=== PATIENT | female | born 1955 | race Caucasian/White ===

== ENCOUNTER 2019-02-15 09:17 | Inpatient (IN) | payer SELFPAY ==
--- NOTE | 2019-02-15 09:28 | ED PDOC ---
Arrival/HPI - General Chief Complaint: Chest Pain Historian: Patient - Critical Care Critical Care Minutes: 30 minutes - History of Present Illness Narrative History of Present Illness (Text): 02/15/19 09:20 63 year old Hungarian-Speaking female, whose past medical history includes hypertension, presents to the emergency department complaining of chest pain and shortness of breath that began this morning approximately 1-2 hours ago. As per son, patient lives in [facility] and is just in [facility]. Patient is a smoker, but is not a drinker and denies any drug use. Patient denies any fever, chills, nausea, vomiting, diarrhea, back pain, neck pain, headache, dizziness, or any other complaints. Time/Duration: Other (1-2 hours ago) Symptom Onset: Sudden Symptom Course: Unchanged Activities at Onset: Light Context: Home Associated Symptoms (Text): 02/15/19 09:46 Patient's son translates. Past Medical History - Provider Review Nursing Documentation Reviewed: Yes - Cardiac Hx Hypertension: Yes - Psychiatric Hx Substance Use: No Family/Social History - Physician Review Nursing Documentation Reviewed: Yes Family/Social History: No Known Family HX Smoking Status: Heavy Smoker > 10 Cigarettes Daily Hx Alcohol Use: Yes Frequency of alcohol use: Socially Hx Substance Use: No Allergies/Home Meds Allergies/Adverse Reactions: Allergies No Known Allergies Allergy (Verified 02/15/19 09:23) Home Medications: Home Meds Medication Instructions Recorded Confirmed amLODIPine [Norvasc] 10 mg PO DAILY 02/15/19 02/15/19 Review of Systems - Physician Review All systems were reviewed & negative as marked: Yes - Review of Systems Constitutional: absent: Fevers, Other (chills) Respiratory: SOB Cardiovascular: Chest Pain Gastrointestinal: absent: Diarrhea, Nausea, Vomiting Musculoskeletal: absent: Back Pain, Neck Pain Neurological: absent: Headache, Dizziness Physical Exam Vital Signs Reviewed: Yes Temperature: Afebrile Blood Pressure: Hypotensive Pulse: Bradycardic Respiratory Rate: Normal Appearance: Positive for: Well-Appearing, Non-Toxic, Uncomfortable Pain Distress: None Mental Status: Positive for: other (Awake and alert) - Systems Exam Head: Present: Atraumatic, Normocephalic Pupils: Present: PERRL Extroacular Muscles: Present: EOMI Conjunctiva: Present: Normal Mouth: Present: Moist Mucous Membranes Neck: Present: Normal Range of Motion Respiratory/Chest: Present: Clear to Auscultation, Good Air Exchange, Decreased Breath Sounds. No: Respiratory Distress, Accessory Muscle Use Cardiovascular: Present: Regular Rate and Rhythm, Normal S1, S2, Bradycardic. No: Murmurs Abdomen: No: Tenderness, Distention, Peritoneal Signs Back: Present: Normal Inspection Upper Extremity: Present: Normal Inspection. No: Cyanosis, Edema Lower Extremity: Present: Normal Inspection. No: Edema Neurological: Present: GCS=15, CN II-XII Intact, Speech Normal, Motor Func Grossly Intact Skin: Present: Warm, Dry, Normal Color. No: Rashes Psychiatric: Present: Alert Medical Decision Making ED Course and Treatment: 02/15/19 09:25 Impression: 63 year old female presents complaining of chest pain and shortness of breath that began this morning approximately 1-2 hours ago. Plan: -- EKG -- Labs -- Chest X-ray -- Aspirin, Brilinta, Heparin, Lipitor -- Urinalysis -- Reassess and disposition Progress Notes: 02/15/19 09:21 EKG shows at BPM with . Interpreted by me. 02/15/19 09:22 Code Heart Called 02/15/19 09:[address] Rasmussen who is aware and agrees with the plan. Patient will be sent to record label internship. 02/15/19 09:46 EKG shows sinus bradycardia rate approximately [address] elevations inferiorly with reciprocal changes. 02/15/19 09:48 Dr Pena hospitalist accepts to his service. - EKG Interpretation Interpreted by ED Physician: Yes Type: 12 lead EKG - Scribe Statement The provider has reviewed the documentation as recorded by the Kareenibe Piedad Smith Provider Scribe Attestation: All medical record entries made by the Scribe were at my direction and personally dictated by me. I have reviewed the chart and agree that the record accurately reflects my personal performance of the history, physical exam, medical decision making, and the department course for this patient. I have also personally directed, reviewed, and agree with the discharge instructions and disposition. Disposition/Present on Arrival - Present on Arrival Any Indicators Present on Arrival: No History of DVT/PE: No History of Uncontrolled Diabetes: No Urinary Catheter: No History of Decub. Ulcer: No History Surgical Site Infection Following: None - Disposition Have Diagnosis and Disposition been Completed?: Yes Diagnosis: Myocardial infarction Disposition: HOSPITALIZED Disposition Time: 09:47 Patient Plan: Admission, ICU Patient Problems: Current Active Problems Problem Status Onset Myocardial infarction Acute Condition: CRITICAL Forms: [facility] (Belarusian)
[2019-02-15] MEDS ORDERED: Phenylephrine 10 mg/ml Inj ONE (09:44)
[2019-02-15] MEDS ORDERED: Lidocaine PF 2% (5 ml) Inj (For Cardiac Arrhy) ONE (09:44)
[2019-02-15] MEDS ORDERED: Iohexol 350mgl/ml 50 ML ONE (09:45)
[2019-02-15] MEDS ORDERED: Nitroglycerin 50mg in D5W 0 MG/0 ML BOTTLE IV ONE (09:45)
[2019-02-15] MEDS ORDERED: Iodixanol 320 MG/ML 100 ML BOTTLE IV ONE (09:45)
[2019-02-15] MEDS ORDERED: Iodixanol 320 MG/ML 200 ML BOTTLE IV ONE (09:45)
[2019-02-15] MEDS ORDERED: Midazolam 2 MG/2 ML VIAL ONE ×2 (09:45→10:10)
--- NOTE | 2019-02-15 09:46 | CP.PCM.HP ---
<Germán Golden - Last Filed: 02/15/19 10:51> History of Present Illness - History of Present Illness History of Present Illness: Germán Golden DO, PGY-2: HPI for Dr. Leon 63 year old female with a past medical history of hypertension and smoker for 30 years who presented to [facility] for chest pain, dyspnea, and diaphoresis that started at 07:00 AM this morning. She reports vomiting twice also in the morning and taking her Amlodipine 10 mg without relief of her chest pain. She lives in [place]. She is Frisian speaking and her son acts as the looping inspector. The pain is severe, pressure-like 10/10, and unremitting. In the ED she was found to have ST elevations in leads II, III, and aVF with reciprocal ST depressions. She was given 5000 units of heparin, 325 of aspirin, 180 of Brillinta, and Atorvastatin 20 mg -all stat. inbound call center representative management planner was called and the patient was transferred emergently to mill labor supervisor for PCI. Otherwise, a complete 12 point ROS is negative except as mentioned above. PMH: Hypertension and active smoker PSH: Denies Allergies: Frisian drug called RODRICK Social: , active smoker with 30 pack year history, denies alcohol or illicit drug use; lives in [place] Present on Admission - Present on Admission Any Indicators Present on Admission: No Review of Systems - Review of Systems All systems: reviewed and no additional remarkable complaints except (as per HPI) Past Patient History - Past Social History Smoking Status: Never Smoked - CARDIAC Hx Hypertension: Yes - PSYCHIATRIC Hx Substance Use: No - SURGICAL HISTORY Hx Surgeries: No Meds Allergies/Adverse Reactions: Allergies Allergy/AdvReac Type Severity Reaction Status Date / Time No Known Allergies Allergy Verified 02/15/19 11:52 Physical Exam - Constitutional Appears: In Acute Distress - Head Exam Head Exam: ATRAUMATIC, NORMOCEPHALIC - Eye Exam Eye Exam: EOMI, Normal appearance - ENT Exam ENT Exam: Mucous Membranes Moist - Neck Exam Neck exam: Positive for: Normal Inspection - Respiratory Exam Respiratory Exam: Clear to Auscultation Bilateral, NORMAL BREATHING PATTERN. a bsent: Accessory Muscle Use - Cardiovascular Exam Cardiovascular Exam: Bradycardia, +S1, +S2 - GI/Abdominal Exam GI & Abdominal Exam: Normal Bowel Sounds, Soft. absent: Guarding, Rebound - Extremities Exam Additional comments: arms felt cold - Back Exam Back exam: NORMAL INSPECTION - Neurological Exam Neurological exam: Alert, CN II-XII Intact, Oriented x3 - Psychiatric Exam Psychiatric exam: Normal Affect, Normal Mood - Skin Skin Exam: Dry, Intact, Normal Color, Warm Results - Vital Signs Recent Vital Signs: Last Vital Signs Temp 97.4 F L 02/15/19 09:19 Pulse 55 L 02/15/19 09:38 Resp 18 02/15/19 09:38 BP 133/69 02/15/19 09:38 Pulse Ox 100 02/15/19 09:38 - Labs Result Diagrams: 02/15/19 09:30 02/15/19 09:30 Assessment & Plan - Assessment and Plan (Free Text) Assessment: 63 year old femal with a past medical history of hypertension and active smoking who presented with substernal chest pain, dyspnea, and diaphoresis and was found to have an STEMI. A code heart was called and patient was given 325 of aspirin, 180 of Brillinta, and 5000 units of IVP Heparin. She was taken for cardiac cath and PTCA with CITLALLI placement occurred in the occluded RCA. The patient was also started on an integrillin drip per the management planner during the cath procedure. She was transferred to the ICU for closer monitoring. Plan: 1) STEMI s/p PTCA with CITLALLI placement in RCA - Patient given loading dose of aspirin and Brillinta, Atorvastatin 20 mg, and one time bolus of heparin 5,000 units - Successuful PTCA to RCA with CITLALLI placement performed by Dr. Rasmussen, client solutions specialist - Integrillin drip for 6 hours per cardiology - NS 100 mls/hr to continue given patient was relatively hypotensive, likely secondary to RV infarction - Cardiology consulted, Dr. Flores - Post PCI care in ICU - ICU for closer monitoring - Holding B-mark and ACEI at this time given the patient is somewhat on hypotensive side - Continue Aspirin 81 mg daily - Continue Brillinta 90 mg BID starting tomorrow, unless otherwise indicated by management planner 2) Active smoker - Smoking cessation counselling - Patient informed she cannot smoke anymore 3) Hypertension - Holding Amlodipine (home med) given hypotensive 4) DVT/GI prophylaxis - SCD - Pepcid 20 mg HS Case was reviewed and discussed with attending physician, Dr. Halina Leon <Halina Leon R - Last Filed: 02/15/19 16:10> Results - Vital Signs Recent Vital Signs: Last Vital Signs Temp 97.9 F 02/15/19 16:00 Pulse 64 02/15/19 16:00 Resp 24 02/15/19 16:00 BP 114/57 L 02/15/19 16:00 Pulse Ox 95 02/15/19 16:00 - Labs Result Diagrams: 02/15/19 09:30 02/15/19 09:30 Labs: Laboratory Results - last 24 hr 02/15/19 02/15/19 02/15/19 09:30 09:30 09:30 WBC 15.8 H RBC 4.93 Hgb 13.8 Hct 43.3 MCV 87.8 MCH 28.0 MCHC 31.9 RDW 14.5 Plt Count 347 MPV 9.5 Neut % (Auto) 76.4 H Lymph % (Auto) 14.5 L Jun[place] % (Auto) 7.2 H Eos % (Auto) 1.6 Baso % (Auto) 0.3 Lymph # (Auto) 2.3 Juncos # (Auto) 1.1 H Eos # (Auto) 0.3 Baso # (Auto) 0.04 Absolute Neuts (auto) 12.08 H PT 10.6 INR 0.94 APTT 26.7 L Sodium 140 Potassium 3.6 Chloride 105 Carbon Dioxide 27 Anion Gap 11 BUN 14 Creatinine 0.7 Est GFR ( Amer) > 60 Est GFR (Non-Af Amer) > 60 Random Glucose 169 H Hemoglobin A1c Calcium 9.1 Magnesium 1.9 Total Bilirubin 0.4 AST 21 ALT 16 Alkaline Phosphatase 95 Lactate Dehydrogenase 437 Total Creatine Kinase 53 Troponin I 0.02 NT-Pro-B Natriuret Pep 88.3 Total Protein 7.0 Albumin 4.1 Globulin 2.9 Albumin/Globulin Ratio 1.4 Triglycerides Cholesterol LDL Cholesterol Direct HDL Cholesterol Blood Type Blood Type Confirm Antibody Screen BBK History Checked 02/15/19 02/15/19 02/15/19 09:30 09:30 11:00 WBC RBC Hgb Hct MCV MCH MCHC RDW Plt Count MPV Neut % (Auto) Lymph % (Auto) Juncos % (Auto) Eos % (Auto) Baso % (Auto) Lymph # (Auto) Juncos # (Auto) Eos # (Auto) Baso # (Auto) Absolute Neuts (auto) PT INR APTT Sodium Potassium Chloride Carbon Dioxide Anion Gap BUN Creatinine Est GFR ( Amer) Est GFR (Non-Af Amer) Random Glucose Hemoglobin A1c 5.8 Calcium Magnesium Total Bilirubin AST ALT Alkaline Phosphatase Lactate Dehydrogenase Total Creatine Kinase Troponin I NT-Pro-B Natriuret Pep Total Protein Albumin Globulin Albumin/Globulin Ratio Triglycerides 86 Cholesterol 256 H LDL Cholesterol Direct 175 H HDL Cholesterol 41 Blood Type A NEGATIVE Blood Type Confirm Antibody Screen Negative BBK History Checked No verified bt 02/15/19 11:45 WBC RBC Hgb Hct MCV MCH MCHC RDW Plt Count MPV Neut % (Auto) Lymph % (Auto) Jun[place] % (Auto) Eos % (Auto) Baso % (Auto) Lymph # (Auto) Juncos # (Auto) Eos # (Auto) Baso # (Auto) Absolute Neuts (auto) PT INR APTT Sodium Potassium Chloride Carbon Dioxide Anion Gap BUN Creatinine Est GFR ( Amer) Est GFR (Non-Af Amer) Random Glucose Hemoglobin A1c Calcium Magnesium Total Bilirubin AST ALT Alkaline Phosphatase Lactate Dehydrogenase Total Creatine Kinase Troponin I NT-Pro-B Natriuret Pep Total Protein Albumin Globulin Albumin/Globulin Ratio Triglycerides Cholesterol LDL Cholesterol Direct HDL Cholesterol Blood Type Blood Type Confirm A NEGATIVE Antibody Screen BBK History Checked Attending/Attestation - Attestation I have personally seen and examined this patient.: Yes I have fully participated in the care of the patient.: Yes I have reviewed all pertinent clinical information: Yes Notes (Text): Patient seen and examined by me with resident at approximately 9:40AM on 02/15/19 in the emergency room. Case including HPI, physical exam, and assessment and plan discussed with resident. Agree with above with following additions/corrections. Patient is a 63-year-old female past medical history significant for hypertension and smoking that presented to the emergency room with chest pain. History taken from patient's son with patient's permission secondary to patient's condition. Per patient's son, mother lives in [place]. The ex- lives in [place]. Patient comes to [place] on certain weekends to visit and was visiting this weekend. Around 7 AM this morning, patient started to have chest pressure and "burning." This was associated with nausea and nonbilious and nonbloody vomiting 2-3 times. She also had associated diaphoresis. Patient lost her balance. Patient also had numbness in her hands and fingers. Patient laid down. Patient's ex- called patient's son who came to the home and called the ambulance. Per patient's son patient was complaining of pain and difficulty with swallowing yesterday. Per patient's son, patient is suppose to be seeing her physician this upcoming Sunday. Patient is a current smoker. Patient takes Norvasc from [facility] for her blood pressure. Patient did not complain of abdominal pain or dysuria. No fevers or chills. Family History: Unable to obtain from patient secondary to patient condition Medications at home: Norvasc from [facility]. Physical exam: General: Awake and alert lying in bed in no acute distress HEENT: Normocephalic, atraumatic. Extraocular muscles intact. Pupils equal and reactive, no scleral icterus. Oropharynx is pink and moist. No pharyngeal erythema or exudate appreciated. Neck is supple. Cardiovascular: Bradycardic S1 and S2. No murmurs, rubs, or gallops appreciated Pulmonary: Normal respiratory effort. No rhonchi, rales, or wheezing appreciated. Gastrointestinal: Soft, nondistended. Nontender. Positive bowel sounds all 4 quadrants. No guarding. Musculoskeletal: Moves all extremities. No calf tenderness. No edema appreciated. Central nervous system: AAO X 3. No focal deficits appreciated. Dermatologic: Skin warm and dry. Assessment and plan: Patient is a 63-year-old female past medical history significant for hypertension and smoking that presented to the emergency room with chest pain. 1. Acute STEMI. Patient s/p PTCA. Drug eluting stent placed in RCA. Cardiology recommendations appreciated. Patient on integrillin drip, brillinta, and ASA. Also on Lipitor. Follow up 2D echo. Monitor in the ICU. 2. Hypertension. Norvasc held for now. Will follow up with management planner for discharge recommendations. 3. Hyperlipidemia. Started on Lipitor. 4. Tobacco abuse. Counseled at length on cessation. Case was discussed in detail with the patient and patient's son at bedside regarding current diagnosis, study results, and treatment plan. All questions answered.
[2019-02-15 09:58] LABS: BASO # 0.04 K/mm3 (0.0-2.0); BASO % 0.3 % (0.0-3.0); EOS # 0.3 (0.0-0.7); EOS % 1.6 % (1.5-5.0); HEMOGLOBIN 13.8 g/dL (12.0-16.0); LYMPH # 2.3 (1.2-3.4); LYMPH % 14.5 % (22.0-35.0); MEAN CELL VOLUME 87.8 fl (80.0-105.0); MEAN CORPUSCULAR HGB CONC 31.9 g/dl (31.0-37.0); MEAN PLATELET VOLUME 9.5 fl (7.0-11.0); MONO # 1.1 (0.1-0.6); MONO % 7.2 % (1.0-6.0); RBC 4.93 10^6/uL (3.5-6.1); RED CELL DISTRIBUTION WIDTH 14.5 % (11.5-14.5); WHITE BLOOD COUNT 15.8 10^3/uL (4.5-11.0)
[2019-02-15 10:01] LABS: INR 0.94; PARTIAL THROMBOPLASTIN TIME 26.7 Seconds (26.9-38.3); PROTHROMBIN TIME 10.6 SECONDS (9.4-12.5)
[2019-02-15 10:10] LABS: ALB/GLOB RATIO 1.4 (1.1-1.8); ALBUMIN 4.1 g/dL (3.0-4.8); ALT/SGPT 16 U/L (7-56); AST/SGOT 21 U/L (14-36); BLOOD UREA NITROGEN 14 mg/dL (7-21); CALCIUM 9.1 mg/dL (8.4-10.5); GFR NON-AFRICAN AMERICAN > 60
[2019-02-15] MEDS ORDERED: Eptifibatide 20 mg/10mL Inj IVP ONE (10:10)
[2019-02-15 10:21] LABS: B-TYPE NATRIURETIC PEPTIDE 88.3 pg/mL (0-450); TROPONIN I 0.02 ng/mL
[2019-02-15] MEDS ORDERED: Eptifibatide 0.75 mg/ml 75 MG/100 ML BAG IV ONE (10:28)
[2019-02-15] MEDS ORDERED: Eptifibatide 0.75 mg/ml 75 MG/100 ML BAG IV SCH ×3 (10:45→11:45)
[2019-02-15] MEDS ORDERED: Sodium Chloride 0.9% 1,000 ML IV SCH ×2 (10:45)
--- NOTE | 2019-02-15 11:12 | RAD ---
Date of service: 02/15/2019 HISTORY: Chest pain COMPARISON: No prior. FINDINGS: LUNGS: The lungs are well inflated and clear. PLEURA: No pleural effusions or pneumothorax. CARDIOVASCULAR: The heart is normal in size. There are aortic atherosclerotic calcifications present. OSSEOUS STRUCTURES: Within normal limits for the patient's age. VISUALIZED UPPER ABDOMEN: Normal. OTHER FINDINGS: None. IMPRESSION: No active pulmonary disease.
[2019-02-15 11:54] LABS: HDL CHOLESTEROL 41 mg/dL (29-60)
[2019-02-15 12:04] LABS: LDL CHOLESTEROL 175 mg/dL (0-129)
--- NOTE | 2019-02-15 13:37 | CP.PCM.CON ---
<Teodoro Diallo - Last Filed: 02/15/19 15:09> History of Present Illness - History of Present Illness History of Present Illness: PGY-2 ICU consult note for Dr Ramírez Mrs Gtz is a 63 year old russian speaking female with a PMHx of active tobacco use for past 30 years, HTN, HLD who presented to our ED for chest pain, dyspnea, and diaphoresis that started at approx 07:00 AM this morning. She reports vomiting twice also in the morning and taking her Amlodipine 10 mg without relief of her chest pain. The pain is severe, pressure-like 10/10, and unremitting. She lives in [place] and is visiting her here in [place]. Her PMD is in [place]. In the ED she was found to have ST elevations in leads II, III, and aVF with reciprocal ST depressions. She was given 5000 units of heparin, 325 of aspirin, 180 of Brillinta, and Atorvastatin 20 mg -all stat. fitness and wellness instructor sales service promoter, Dr Rasmussen was called and the patient was transferred emergently to laboratory supervisor for PCI where a stent was placed in the RCA. She is now in the ICU for post PCI care, she denies discomfort, pain, abd pain, fevers, cp, n/v/d. Son was at bedside who provided translation and additional history. PMHx: active tobacco use for past 30 years, HTN, HLD PSHx: denies Allergies: NKA Home Meds: son/patient unable to recall names of home meds FamHx: no hx of heart dz in family SocialHx: 30 pack year smoking hx, no alcohol, no illicit drugs, lives in [place], visiting in [place] Review of Systems - Review of Systems All systems: reviewed and no additional remarkable complaints except (as stated in HPI) Past Patient History - Past Social History Smoking Status: Never Smoked - CARDIAC Hx Hypertension: Yes - PSYCHIATRIC Hx Substance Use: No - SURGICAL HISTORY Hx Surgeries: No Meds Allergies/Adverse Reactions: Allergies Allergy/AdvReac Type Severity Reaction Status Date / Time No Known Allergies Allergy Verified 02/15/19 11:52 - Medications Medications: Current Medications Aspirin (Ecotrin) 81 mg PO DAILY [facility] Famotidine (Pepcid) 20 mg PO HS [facility] Eptifibatide (Integrilin) 75 mg in 100 mls @ 9.471 mls/hr IV .[id number] [facility]; Protocol Last Admin: 02/15/19 10:30 Dose: 9.471 mls/hr Ticagrelor (Brilinta) 90 mg PO BID [facility] Physical Exam - Constitutional Appears: Well, Non-toxic, No Acute Distress - Head Exam Head Exam: ATRAUMATIC, NORMAL INSPECTION - Eye Exam Eye Exam: EOMI, Normal appearance, PERRL. absent: Scleral icterus - ENT Exam ENT Exam: Mucous Membranes Moist - Neck Exam Neck exam: Positive for: Full Rom, Normal Inspection - Respiratory Exam Respiratory Exam: Clear to Auscultation Bilateral, NORMAL BREATHING PATTERN. absent: Accessory Muscle Use, Rales, Rhonchi, Wheezes - Cardiovascular Exam Cardiovascular Exam: REGULAR RHYTHM, +S1, +S2. absent: Tachycardia, Systolic Murmur - GI/Abdominal Exam GI & Abdominal Exam: Normal Bowel Sounds, Soft. absent: Distended, Tenderness - Extremities Exam Extremities exam: Positive for: normal capillary refill, normal inspection, pedal pulses present. Negative for: pedal edema Additional comments: right groin catheter insertion site is c/d/i - Neurological Exam Neurological exam: Alert, Oriented x3 - Skin Skin Exam: Dry, Intact, Normal Color, Warm Results - Vital Signs Recent Vital Signs: Last Vital Signs Temp 97.4 F L 02/15/19 12:00 Pulse 76 02/15/19 12:30 Resp 35 H 02/15/19 12:30 BP 131/80 02/15/19 12:30 Pulse Ox 100 02/15/19 12:30 - Labs Result Diagrams: 02/15/19 09:30 02/15/19 09:30 Labs: Laboratory Results - last 24 hr 02/15/19 02/15/19 02/15/19 09:30 09:30 09:30 WBC 15.8 H RBC 4.93 Hgb 13.8 Hct 43.3 MCV 87.8 MCH 28.0 MCHC 31.9 RDW 14.5 Plt Count 347 MPV 9.5 Neut % (Auto) 76.4 H Lymph % (Auto) 14.5 L [place] % (Auto) 7.2 H Eos % (Auto) 1.6 Baso % (Auto) 0.3 Lymph # (Auto) 2.3 [place] # (Auto) 1.1 H Eos # (Auto) 0.3 Baso # (Auto) 0.04 Absolute Neuts (auto) 12.08 H PT 10.6 INR 0.94 APTT 26.7 L Sodium 140 Potassium 3.6 Chloride 105 Carbon Dioxide 27 Anion Gap 11 BUN 14 Creatinine 0.7 Est GFR ( Amer) > 60 Est GFR (Non-Af Amer) > 60 Random Glucose 169 H Calcium 9.1 Magnesium 1.9 Total Bilirubin 0.4 AST 21 ALT 16 Alkaline Phosphatase 95 Lactate Dehydrogenase 437 Total Creatine Kinase 53 Troponin I 0.02 NT-Pro-B Natriuret Pep 88.3 Total Protein 7.0 Albumin 4.1 Globulin 2.9 Albumin/Globulin Ratio 1.4 Triglycerides Cholesterol LDL Cholesterol Direct HDL Cholesterol Blood Type Blood Type Confirm Antibody Screen BBK History Checked 02/15/19 02/15/19 02/15/19 09:30 11:00 11:45 WBC RBC Hgb Hct MCV MCH MCHC RDW Plt Count MPV Neut % (Auto) Lymph % (Auto) [place] % (Auto) Eos % (Auto) Baso % (Auto) Lymph # (Auto) [place] # (Auto) Eos # (Auto) Baso # (Auto) Absolute Neuts (auto) PT INR APTT Sodium Potassium Chloride Carbon Dioxide Anion Gap BUN Creatinine Est GFR ( Amer) Est GFR (Non-Af Amer) Random Glucose Calcium Magnesium Total Bilirubin AST ALT Alkaline Phosphatase Lactate Dehydrogenase Total Creatine Kinase Troponin I NT-Pro-B Natriuret Pep Total Protein Albumin Globulin Albumin/Globulin Ratio Triglycerides 86 Cholesterol 256 H LDL Cholesterol Direct 175 H HDL Cholesterol 41 Blood Type A NEGATIVE Blood Type Confirm A NEGATIVE Antibody Screen Negative BBK History Checked No verified bt Assessment & Plan - Assessment and Plan (Free Text) Plan: Mrs Gtz is a 63 year old russian speaking female with a PMHx of active tobacco use for past 30 years, HTN, HLD who presented with chest pain, was found to have ST elevations in II, III, aVF with recipricol changes, was taken to the laboratory supervisor for PCI and insertion of CITLALLI in RCA. Cardiovascular #Inferior Wall CT - currently hemodynamically stable - s/p successful PCI to RCA w/ CITLALLI placement performed by sales service promoter Dr Elicia barclay - started on dual anti-platelet therapy w/ aspirin 81mg po qd and ticagrelor 90mg po bid - eptifibatide drip to be continued until 23:[address] Rasmussen - Holding B-mark and ACEI at this time given the patient was hypotensive earlier, she will also need high-intensity statin - Cardiology consulted, Dr. Flores #HLD - lipid panel showed LDL of 175 and cholesterol of 256 - she would benefit from a high-intensity statin ID - no active issues, leukocytosis likely a stress response to CT Pulmonary - no active issues, cxr showed no active lung dz, saturating well on 2L NC PPx - SCDs, pepcid 20mg po hs Case was reviewed and discussed with attending physician, Dr Ramírez <Jaycob Ramírez - Last Filed: 02/16/19 11:39> Meds - Medications Medications: Current Medications Aspirin (Ecotrin) 81 mg PO DAILY [facility] Last Admin: 02/16/19 10:38 Dose: 81 mg Atorvastatin Calcium (Lipitor) 40 mg PO DIN [facility] Last Admin: 02/15/19 17:10 Dose: 40 mg Famotidine (Pepcid) 20 mg PO HS [facility] Last Admin: 02/15/19 22:20 Dose: 20 mg Lisinopril (Zestril) 5 mg PO DAILY [facility] Last Admin: 02/16/19 09:36 Dose: 5 mg Metoprolol Succinate (Toprol Xl) 25 mg PO BRK [facility] Last Admin: 02/16/19 07:55 Dose: Not Given Ticagrelor (Brilinta) 90 mg PO BID [facility] Last Admin: 02/16/19 09:36 Dose: 90 mg Results - Vital Signs Recent Vital Signs: Last Vital Signs Temp 97.9 F 02/15/19 16:00 Pulse 79 02/16/19 09:40 Resp 40 H 02/16/19 09:40 BP 112/56 L 02/16/19 09:36 Pulse Ox 96 02/16/19 09:40 - Labs Result Diagrams: 02/16/19 05:00 02/16/19 05:00 Labs: Laboratory Results - last 24 hr 02/15/19 02/15/19 02/15/19 09:30 09:30 11:00 WBC RBC Hgb Hct MCV MCH MCHC RDW Plt Count MPV Neut % (Auto) Lymph % (Auto) [place] % (Auto) Eos % (Auto) Baso % (Auto) Lymph # (Auto) [place] # (Auto) Eos # (Auto) Baso # (Auto) Absolute Neuts (auto) Sodium Potassium Chloride Carbon Dioxide Anion Gap BUN Creatinine Est GFR ( Amer) Est GFR (Non-Af Amer) Random Glucose Hemoglobin A1c 5.8 Calcium Phosphorus Magnesium Total Bilirubin AST ALT Alkaline Phosphatase Troponin I Total Protein Albumin Globulin Albumin/Globulin Ratio Triglycerides 86 Cholesterol 256 H LDL Cholesterol Direct 175 H HDL Cholesterol 41 Blood Type A NEGATIVE Blood Type Confirm Antibody Screen Negative 02/15/19 02/16/19 02/16/19 11:45 05:00 05:00 WBC 9.7 D RBC 4.15 Hgb 11.7 L D Hct 36.4 MCV 87.7 MCH 28.2 MCHC 32.1 RDW 14.8 H Plt Count 281 MPV 9.4 Neut % (Auto) 73.6 H Lymph % (Auto) 15.3 L [place] % (Auto) 10.5 H Eos % (Auto) 0.5 L Baso % (Auto) 0.1 Lymph # (Auto) 1.5 [place] # (Auto) 1.0 H Eos # (Auto) 0.1 Baso # (Auto) 0.01 Absolute Neuts (auto) 7.14 H Sodium 140 Potassium 3.6 Chloride 110 H Carbon Dioxide 26 Anion Gap 8 L BUN 13 Creatinine 0.6 L Est GFR ( Amer) > 60 Est GFR (Non-Af Amer) > 60 Random Glucose 94 Hemoglobin A1c Calcium 8.6 Phosphorus 2.9 Magnesium 1.8 Total Bilirubin 0.5 AST 125 H D ALT 33 Alkaline Phosphatase 76 Troponin I 27.80 H* D Total Protein 5.7 L Albumin 3.2 Globulin 2.5 Albumin/Globulin Ratio 1.3 Triglycerides Cholesterol LDL Cholesterol Direct HDL Cholesterol Blood Type Blood Type Confirm A NEGATIVE Antibody Screen Attending/Attestation - Attestation I have personally seen and examined this patient.: Yes I have fully participated in the care of the patient.: Yes I have reviewed all pertinent clinical information: Yes Notes (Text): 02/16/19 11:39 63 yo female with STEMI. on integrillin drip. bb, statins, dap. no exapnding hematoma. BP stable
[2019-02-15 15:01] VITALS: BMI 21.7
[2019-02-15] MEDS ORDERED: Pneumococcal 23-Valent Vaccine IM ONE (15:01)
--- NOTE | 2019-02-16 05:35 | CARD ---
APPROVED REPORT Date of service: 02/15/2019 EKG Measurement Heart [id number] <Conclusion> Sinus bradycardia with sinus arrhythmia with 1st degree AV block Possible Left atrial enlargement ST elevation, consider inferior injury or acute infarct ACUTE MD Consider right ventricular involvement in acute inferior infarct Abnormal ECG
[2019-02-16 06:02] LABS: BASO # 0.01 K/mm3 (0.0-2.0); BASO % 0.1 % (0.0-3.0); EOS # 0.1 (0.0-0.7); EOS % 0.5 % (1.5-5.0); HEMOGLOBIN 11.7 g/dL (12.0-16.0); LYMPH # 1.5 (1.2-3.4); LYMPH % 15.3 % (22.0-35.0); MEAN CELL VOLUME 87.7 fl (80.0-105.0); MEAN CORPUSCULAR HEMOGLOBIN 28.2 pg (25.0-35.0); MEAN CORPUSCULAR HGB CONC 32.1 g/dl (31.0-37.0); MEAN PLATELET VOLUME 9.4 fl (7.0-11.0); MONO % 10.5 % (1.0-6.0); RBC 4.15 10^6/uL (3.5-6.1); RED CELL DISTRIBUTION WIDTH 14.8 % (11.5-14.5); WHITE BLOOD COUNT 9.7 10^3/uL (4.5-11.0)
[2019-02-16 06:41] LABS: ALB/GLOB RATIO 1.3 (1.1-1.8); ALBUMIN 3.2 g/dL (3.0-4.8); ALT/SGPT 33 U/L (7-56); AST/SGOT 125 U/L (14-36); BLOOD UREA NITROGEN 13 mg/dL (7-21); CALCIUM 8.6 mg/dL (8.4-10.5); GFR NON-AFRICAN AMERICAN > 60
[2019-02-16] MEDS: Metoprolol Succinate 25 mg XL Tab PO SCH (07:55)
--- NOTE | 2019-02-16 11:42 | CP.PCM.PN ---
<Germán Golden - Last Filed: 02/16/19 11:42> Subjective - Date & Time of Evaluation Date of Evaluation: 02/16/19 Time of Evaluation: 06:40 - Subjective Subjective: Germán Golden DO, PGY-2: Progress Note for Dr. Halina Leon Patient seen and examined at bedside. [place] translation service utilized. Patient denies chest pain, dyspnea, or pain in right groin site. No adverse events noted overnight. Objective - Vital Signs/Intake and Output Vital Signs (last 24 hours): Temp Pulse Resp BP Pulse Ox 97.9 F 79 40 H 112/56 L 96 02/15/19 16:00 02/16/19 09:40 02/16/19 09:40 02/16/19 09:36 02/16/19 09:40 Intake and Output: 02/16/19 02/16/19 06:59 18:59 Intake Total 1220 Output Total 800 Balance 420 - Medications Medications: Current Medications Aspirin (Ecotrin) 81 mg PO DAILY [facility] Last Admin: 02/16/19 10:38 Dose: 81 mg Atorvastatin Calcium (Lipitor) 40 mg PO DIN [facility] Last Admin: 02/15/19 17:10 Dose: 40 mg Famotidine (Pepcid) 20 mg PO HS [facility] Last Admin: 02/15/19 22:20 Dose: 20 mg Lisinopril (Zestril) 5 mg PO DAILY [facility] Last Admin: 02/16/19 09:36 Dose: 5 mg Metoprolol Succinate (Toprol Xl) 25 mg PO BRK [facility] Last Admin: 02/16/19 07:55 Dose: Not Given Ticagrelor (Brilinta) 90 mg PO BID [facility] Last Admin: 02/16/19 09:36 Dose: 90 mg - Labs Labs: 02/16/19 05:00 02/16/19 05:00 PT 10.6 SECONDS (9.4-12.5) 02/15/19 09:30 INR 0.94 02/15/19 09:30 APTT 26.7 Seconds (26.9-38.3) L 02/15/19 09:30 - Constitutional Appears: Well, Non-toxic - Head Exam Head Exam: ATRAUMATIC, NORMOCEPHALIC - Eye Exam Eye Exam: EOMI, Normal appearance - ENT Exam ENT Exam: Mucous Membranes Moist, Normal Oropharynx - Neck Exam Neck Exam: Normal Inspection - Respiratory Exam Respiratory Exam: Clear to Ausculation Bilateral, NORMAL BREATHING PATTERN. absent: Accessory Muscle Use - Cardiovascular Exam Cardiovascular Exam: RRR, +S1, +S2 - GI/Abdominal Exam GI & Abdominal Exam: Soft, Normal Bowel Sounds. absent: Tenderness, Rebound - Extremities Exam Extremities Exam: Normal Inspection. absent: Calf Tenderness - Neurological Exam Neurological Exam: Alert, Awake, CN II-XII Intact, Oriented x3 - Psychiatric Exam Psychiatric exam: Normal Affect, Normal Mood - Skin Skin Exam: Dry, Intact, Normal Color, Warm Assessment and Plan - Assessment and Plan (Free Text) Assessment: 1) STEMI s/p PTCA with CITLALLI placement in RCA - Patient given loading dose of aspirin and Brillinta, Atorvastatin 20 mg, and one time bolus of heparin 5,000 units - Successuful PTCA to RCA with CITLALLI placement performed by Dr. Rasmussen, holder pile driving - Integrillin drip for 6 hours per cardiology - Cardiology consulted, Dr. Flores - Post PCI care in ICU - B-mark and ACEI started per Cardiology - Continue Aspirin 81 mg daily - Continue Atorvastatin 40 mg after Dinner - Continue Brillinta 90 mg BID - Echocardiogram pending 2) Active smoker - Smoking cessation counselling - Patient informed she cannot smoke anymore 3) DVT/GI prophylaxis - SCD - Pepcid 20 mg HS Case was reviewed and discussed with attending physician, Dr. Halina Leon <Halina Leon R - Last Filed: 02/16/19 15:54> Objective - Vital Signs/Intake and Output Vital Signs (last 24 hours): Temp Pulse Resp BP Pulse Ox 97.9 F 57 L 18 117/68 97 02/16/19 12:00 02/16/19 12:00 02/16/19 12:00 02/16/19 12:00 02/16/19 09:45 Intake and Output: 02/16/19 02/16/19 06:59 18:59 Intake Total 1220 Output Total 800 Balance 420 - Medications Medications: Current Medications Aspirin (Ecotrin) 81 mg PO DAILY [facility] Last Admin: 02/16/19 10:38 Dose: 81 mg Atorvastatin Calcium (Lipitor) 40 mg PO DIN [facility] Last Admin: 02/15/19 17:10 Dose: 40 mg Famotidine (Pepcid) 20 mg PO HS [facility] Last Admin: 02/15/19 22:20 Dose: 20 mg Lisinopril (Zestril) 5 mg PO DAILY [facility] Last Admin: 02/16/19 09:36 Dose: 5 mg Metoprolol Succinate (Toprol Xl) 25 mg PO BRK [facility] Last Admin: 02/16/19 07:55 Dose: Not Given Ticagrelor (Brilinta) 90 mg PO BID [facility] Last Admin: 02/16/19 09:36 Dose: 90 mg - Labs Labs: 02/16/19 05:00 02/16/19 05:00 PT 10.6 SECONDS (9.4-12.5) 02/15/19 09:30 INR 0.94 02/15/19 09:30 APTT 26.7 Seconds (26.9-38.3) L 02/15/19 09:30 Attending/Attestation - Attestation I have personally seen and examined this patient.: Yes I have fully participated in the care of the patient.: Yes I have reviewed all pertinent clinical information, including history, physical exam and plan: Yes Notes (Text): Patient seen and examined by me with resident at approximately 9:30AM on 02/16/19 in the emergency room. Case including HPI, physical exam, and assessment and plan discussed with resident. Agree with above with following sukhi tions/corrections. Patient is a 63-year-old female past medical history significant for hypertension and smoking that presented to the emergency room with chest pain. [place] assistant banquet manager Rosalba # [id number] used for translation. Patient states she is feeling better today. No chest pain today. She denies any palpitations. No shortness of breath. Patient denies any pain at her right groin cardiac cath si te. No nausea, vomiting, or abdominal pain. no dysuria. No headaches or dizziness. No fevers or chills. Patient understands that she will need to stop smoking and will need to eat healthy and exercise. Physical exam: General: Awake and alert lying in bed in no acute distress HEENT: Normocephalic, atraumatic. Extraocular muscles intact. Pupils equal and reactive, no scleral icterus. Oropharynx is pink and moist. No pharyngeal erythema or exudate appreciated. Neck is supple. Cardiovascular: Normal rhythm. Normal S1 and S2. No murmurs, rubs, or gallops appreciated Pulmonary: Normal respiratory effort. No rhonchi, rales, or wheezing appreciated. Gastrointestinal: Soft, nondistended. Nontender. Positive bowel sounds all 4 quadrants. No guarding. Musculoskeletal: Moves all extremities. No calf tenderness. No edema appreciated. Central nervous system: AAO X 3. No focal deficits appreciated. Dermatologic: Skin warm and dry. Assessment and plan: Patient is a 63-year-old female past medical history significant for hypertension and smoking that presented to the emergency room with chest pain. 1. Acute STEMI. Patient s/p PTCA 01/16/19. Drug eluting stent placed in RCA. Cardiology recommendations appreciated. S/P integrillin drip. Continue brillinta and ASA. Continue Lipitor. Continue lisinopril and Toprol. Pending 2D echo. Monitor in the ICU. PTeval and treat. 2. Hypertension. Patient will need to stop home Norvasc. Continue lisinopril and Toprol XL. 3. Hyperlipidemia. Continue Lipitor. 4. Tobacco abuse. Counseled at length on cessation. Case was discussed in detail with the patient and patient's son at bedside regarding current diagnosis, study results, and treatment plan. All questions answered.
[2019-02-16 12:52] VITALS: RESP 18
--- NOTE | 2019-02-16 13:22 | CON ---
DATE: 02/16/2019 REQUESTING PHYSICIAN: Dr. Leon. REASON FOR CONSULTATION: Acute myocardial infarction. HISTORY: This is a 63-year-old woman with a history of tobacco abuse and hyperlipidemia, who was admitted to the emergency room yesterday with complaints of chest pain and diaphoresis. Her EKG showed evidence of acute inferior myocardial infarction. Emergency catheterization and PCI of her RCA was performed by Dr. Rasmussen. The patient had a good result and is now lying in bed in the CCU. She has had no recurrent chest pain. She is predominantly [place] speaking. She lives in [place] and was visiting her in [facility]. She had no prior cardiac history. PAST MEDICAL HISTORY: Known for hypertension and hyperlipidemia. CURRENT MEDICATIONS: Include aspirin, Brilinta, Lipitor 40 mg daily, and Pepcid. ALLERGIES: NONE. SOCIAL HISTORY: She is a longstanding smoker for many years. She denies alcohol use. FAMILY HISTORY: Both parents are from age-related illnesses. No family history of premature heart disease. REVIEW OF SYSTEMS: A 12-point review of systems is otherwise unremarkable. She has had no prior chest pain, PND, or orthopnea. PHYSICAL EXAMINATION: GENERAL: She is a middle-aged woman who appears comfortable at rest. VITAL SIGNS: Her blood pressure is 122/62 with a pulse of 76, respirations are 16. She is afebrile. HEENT: No JVD. Chest: Few scattered rhonchi heard. HEART: PMI normal position. No pathological gallops noted. ABDOMEN: Soft and nontender with bowel sounds. EXTREMITIES: No edema. DIAGNOSTIC DATA: Morning blood work is pending. Electrocardiogram from yesterday revealed evidence of inferior ST elevations with reciprocal changes. Chest x-ray revealed normal cardiac silhouette with clear lung hamlin. IMPRESSION: 1. Coronary artery disease, status post acute inferior wall myocardial infarction, successfully treated with percutaneous coronary intervention of right coronary artery. 2. Mild left coronary artery disease. 3. History of tobacco abuse. 4. Hyperlipidemia. 5. Hypertension. RECOMMENDATIONS: Her current medications will be continued for now. An echocardiogram will be scheduled for the morning. Repeat morning blood work will be checked. High intensity statins are advised and aspirin and Brilinta therapy should be continued for at least 1 year. Low-dose beta-mark therapy as well as NAV inhibitor therapy will be initiated. Post myocardial infarction instructions will need to be reviewed with her family. Continue smoking abstinence as advised. I will be happy to provide ongoing followup as needed. Thank you for this consultation. Manolo Hill MD
--- NOTE | 2019-02-16 21:54 | CP.PCM.PN ---
Subjective - Date & Time of Evaluation Date of Evaluation: 02/16/19 Time of Evaluation: 21:53 - Subjective Subjective: S:Patient was seen at bedside. She had complaint of pain in the right groin area. Nurse Jyothi had called to get an order for abdomen and pelvis CAT scan. According to her medical genetics director had ordered a CAT scan of the right thigh. She wanted the order of abdomen and pelvis CAT scan. Which one was ordered. Dr. Polanco had called back. He had told nurse Jyothi not to get the test done now. Pertinent medical record was reviewed. O:Vital signs stable. Alert oriented x3. Right groin area has minimal swelling. Right dorsalis pedis pulse is good. A:Right groin pain. Status post cardiac cath. P:Observation. Objective - Vital Signs/Intake and Output Vital Signs (last 24 hours): Temp Pulse Resp BP Pulse Ox 98.4 F 58 L 18 131/70 98 02/16/19 18:00 02/16/19 20:00 02/16/19 18:00 02/16/19 18:00 02/16/19 18:00 - Medications Medications: Current Medications Aspirin (Ecotrin) 81 mg PO DAILY [facility] Last Admin: 02/16/19 10:38 Dose: 81 mg Atorvastatin Calcium (Lipitor) 40 mg PO DIN [facility] Last Admin: 02/16/19 18:11 Dose: 40 mg Famotidine (Pepcid) 20 mg PO HS [facility] Last Admin: 02/15/19 22:20 Dose: 20 mg Lisinopril (Zestril) 5 mg PO DAILY [facility] Last Admin: 02/16/19 09:36 Dose: 5 mg Metoprolol Succinate (Toprol Xl) 25 mg PO BRK [facility] Last Admin: 02/16/19 07:55 Dose: Not Given Ticagrelor (Brilinta) 90 mg PO BID [facility] Last Admin: 02/16/19 18:08 Dose: 90 mg - Labs Labs: 02/16/19 05:00 02/16/19 05:00 PT 10.6 SECONDS (9.4-12.5) 02/15/19 09:30 INR 0.94 02/15/19 09:30 APTT 26.7 Seconds (26.9-38.3) L 02/15/19 09:30
[2019-02-17 06:37] LABS: BASO # 0.03 K/mm3 (0.0-2.0); BASO % 0.4 % (0.0-3.0); EOS # 0.1 (0.0-0.7); EOS % 1.5 % (1.5-5.0); HEMOGLOBIN 11.2 g/dL (12.0-16.0); LYMPH # 1.6 (1.2-3.4); LYMPH % 20.7 % (22.0-35.0); MEAN CELL VOLUME 88.4 fl (80.0-105.0); MEAN CORPUSCULAR HEMOGLOBIN 27.7 pg (25.0-35.0); MEAN CORPUSCULAR HGB CONC 31.3 g/dl (31.0-37.0); MEAN PLATELET VOLUME 9.4 fl (7.0-11.0); MONO % 12.7 % (1.0-6.0); RBC 4.05 10^6/uL (3.5-6.1); RED CELL DISTRIBUTION WIDTH 14.8 % (11.5-14.5); WHITE BLOOD COUNT 7.5 10^3/uL (4.5-11.0)
[2019-02-17 07:02] LABS: TROPONIN I 9.87 ng/mL
[2019-02-17 07:19] LABS: ALB/GLOB RATIO 1.2 (1.1-1.8); ALBUMIN 3.2 g/dL (3.0-4.8); ALT/SGPT 142 U/L (7-56); AST/SGOT 207 U/L (14-36); BLOOD UREA NITROGEN 14 mg/dL (7-21); CALCIUM 8.6 mg/dL (8.4-10.5); GFR NON-AFRICAN AMERICAN > 60
--- NOTE | 2019-02-17 07:23 | CARD ---
APPROVED REPORT Date of service: 02/16/2019 EKG Measurement Heart [id number] <Conclusion> Normal sinus rhythm Inferior infarct, age undetermined Abnormal ECG
[2019-02-17] MEDS: Metoprolol Succinate 25 mg XL Tab PO SCH (09:58)
[2019-02-17 10:07] VITALS: O2SAT 96
[2019-02-17 11:55] VITALS: BP 117/71; PULSE 56; TEMP 98.2
--- NOTE | 2019-02-17 12:43 | CARD ---
APPROVED REPORT Date of service: 02/17/2019 EXAM: Two-dimensional and M-mode echocardiogram with Doppler and color Doppler. INDICATION ACUTE MO 2D DIMENSIONS Left Atrium (2D)3.7 (1.6-4.0cm)IVSd1.1 (0.7-1.1cm) LVDd4.1 (3.9-5.9cm)PWd1.0 (0.7-1.1cm) LVDs2.9 (2.5-4.0cm)FS (%) 28.4 % LVEF (%)55.3 (>50%) M-Mode DIMENSIONS Aortic Root2.20 (2.2-3.7cm)Aortic Cusp Exc.1.70 (1.5-2.0cm) Aortic Valve AoV Peak Jbhstwjk136.0cm/Lena Peak GR.7mmHg Mitral Valve MV E Xpbvbpss85.0cm/sMV A Ohdamzkl73.7cm/sE/A ratio0.7 TDI E/Lateral E'0.0E/Medial E'0.0 Tricuspid Valve TR Peak [id number]/sRAP [id number] Peak Gr.9mmHg [id number] LEFT VENTRICLE The left ventricle is normal size. There is normal left ventricular wall thickness. The systolic function is mildly impaired. There is mild hypokinesis in the inferoseptal wall. RIGHT VENTRICLE The right ventricle is normal size. The right ventricular systolic function is normal. ATRIA The left atrium size is normal. The right atrium size is normal. The interatrial septum is intact with no evidence for an atrial septal defect. AORTIC VALVE The aortic valve is normal in structure. No aortic regurgitation is present. There is no aortic valvular stenosis. MITRAL VALVE The mitral valve is normal in structure. Mitral regurgitation is mild. TRICUSPID VALVE The tricuspid valve is normal in structure. There is no tricuspid valve regurgitation noted. PULMONIC VALVE The pulmonary valve is normal in structure. GREAT VESSELS The aortic root is normal in size. The IVC is normal in size and collapses >50% with inspiration. PERICARDIAL EFFUSION There is no pleural effusion. There is no pericardial effusion. <Conclusion> Normal chamber size. Mildly reduced LV systolic function with mild inferoseptal hypokinesis. Mild MR.
--- NOTE | 2019-02-17 14:44 | PN ---
DATE: 02/17/2019 SUBJECTIVE: The patient is seen lying in bed on telemetry. She is comfortable at the present time. She had evidence of a right groin hematoma yesterday. Site feels better today. Her hemoglobin has remained stable. She was anxious to go home yesterday, but agreed to stay for medication adjustment and ambulation as well as echocardiogram this morning. She denies any chest pain or dyspnea. MEDICATIONS: Her current medications include Brilinta 90 mg b.i.d., Ecotrin once daily, Lipitor 40 mg daily, Toprol-XL 25 mg daily, Zestril 5 mg daily, and Pepcid. OBJECTIVE: GENERAL: She is a middle-aged woman, who appears comfortable at the present time. VITAL SIGNS: Blood pressure is 116/70 with a pulse of 62 and sinus, respirations are 14. She is afebrile. HEENT: No JVD. CHEST: Few scattered rhonchi. HEART: PMI in normal position. No pathological gallops noted. ABDOMEN: Soft, nontender, normoactive bowel sounds. EXTREMITIES: No edema. Right groin with small hematoma, which appears unchanged in size from what was described yesterday. DIAGNOSTIC DATA: Troponin is now 9.87 down from 27.8 yesterday, potassium 3.8, BUN and creatinine 14 and 0.6. AST and ALT 207 and 142. Hemoglobin and hematocrit 11.2 and 35.8 with a platelet count of 274,000. IMPRESSION: 1. Recent inferior wall myocardial infarction treated with emergency percutaneous coronary intervention of right coronary artery, clinically stable. 2. History of tobacco abuse. 3. Elevated transaminases, possibly related to statin use. RECOMMENDATIONS: An echocardiogram has been ordered for this morning. The need for aspirin and Brilinta therapy was discussed with her. Atorvastatin will be placed on hold if her echocardiogram shows no significant abnormalities. She appears stable from cardiac standpoint for discharge home. It was emphasized to her that she needs to follow up with a compensation coordinator in her home area and her transaminases will need to be checked as an outpatient as well. Smoking abstinence was strongly advised. Manolo Hill MD
--- NOTE | 2019-02-17 16:05 | CP.PCM.DIS ---
<Emiliano Wasserman - Last Filed: 02/17/19 15:55> Provider - Provider Date of Admission: 02/16/19 17:29 Attending physician: Halina Leon DO Consults: 02/15/19 10:49 Physician Consult Routine Comment: Consulting Provider: Manolo Hill Consulting Physician: Manolo Hill Reason for Consult: post-STEMI with PTCA and stent 02/15/19 15:01 Inpatient WAISTLINE JOINER OVERLOCK Core Measures Referral Routine Comment: Physician Instructions: Reason For Exam: EVALUATION Nursing Referral for Wound Care Routine Comment: INTACT SKIN POST CATH RIGHT GROIN Physician Instructions: Reason For Exam: EVALUATION Respiratory Therapy Referral Routine Comment: SMOKING CESSATION Physician Instructions: Reason For Exam: EVALUATION Transition In Care/Readmission Reduction Routine Comment: Physician Instructions: Reason For Exam: EVALUATION Time Spent in preparation of Discharge (in minutes): 40 Diagnosis - Discharge Diagnosis (1) ST elevation (STEMI) myocardial infarction involving right coronary artery Status: Resolved Hospital Course - Lab Results Lab Results: Micro Results 02/15/19 11:55 Nose MRSA Culture (Admit) - Final MRSA NOT DETECTED Most Recent Lab Values WBC 7.5 10^3/uL (4.5-11.0) D 02/17/19 06:00 RBC 4.05 10^6/uL (3.5-6.1) 02/17/19 06:00 Hgb 11.2 g/dL (12.0-16.0) L 02/17/19 06:00 Hct 35.8 % (36.0-48.0) L 02/17/19 06:00 MCV 88.4 fl (80.0-105.0) 02/17/19 06:00 MCH 27.7 pg (25.0-35.0) 02/17/19 06:00 MCHC 31.3 g/dl (31.0-37.0) 02/17/19 06:00 RDW 14.8 % (11.5-14.5) H 02/17/19 06:00 Plt Count 274 10^3/uL (120.0-450.0) 02/17/19 06:00 MPV 9.4 fl (7.0-11.0) 02/17/19 06:00 Neut % (Auto) 64.7 % (50.0-68.0) 02/17/19 06:00 Lymph % (Auto) 20.7 % (22.0-35.0) L 02/17/19 06:00 [place] % (Auto) 12.7 % (1.0-6.0) H 02/17/19 06:00 Eos % (Auto) 1.5 % (1.5-5.0) 02/17/19 06:00 Baso % (Auto) 0.4 % (0.0-3.0) 02/17/19 06:00 Lymph # (Auto) 1.6 (1.2-3.4) 02/17/19 06:00 [place] # (Auto) 1.0 (0.1-0.6) H 02/17/19 06:00 Eos # (Auto) 0.1 (0.0-0.7) 02/17/19 06:00 Baso # (Auto) 0.03 K/mm3 (0.0-2.0) 02/17/19 06:00 Absolute Neuts (auto) 4.88 (1.4-6.5) 02/17/19 06:00 PT 10.6 SECONDS (9.4-12.5) 02/15/19 09:30 INR 0.94 02/15/19 09:30 APTT 26.7 Seconds (26.9-38.3) L 02/15/19 09:30 Sodium 141 mmol/L (132-148) 02/17/19 06:00 Potassium 3.8 mmol/L (3.6-5.0) 02/17/19 06:00 Chloride 109 mmol/L (98-107) H 02/17/19 06:00 Carbon Dioxide 28 mmol/L (21-33) 02/17/19 06:00 Anion Gap 8 (10-20) L 02/17/19 06:00 BUN 14 mg/dL (7-21) 02/17/19 06:00 Creatinine 0.6 mg/dl (0.7-1.2) L 02/17/19 06:00 Est GFR ( Amer) > 60 02/17/19 06:00 Est GFR (Non-Af Amer) > 60 02/17/19 06:00 Random Glucose 93 mg/dL (70-110) 02/17/19 06:00 Hemoglobin A1c 5.8 % (4.2-6.5) 02/15/19 09:30 Calcium 8.6 mg/dL (8.4-10.5) 02/17/19 06:00 Phosphorus 2.9 mg/dL (2.5-4.5) 02/16/19 05:00 Magnesium 1.8 mg/dL (1.7-2.2) 02/16/19 05:00 Total Bilirubin 0.5 mg/dL (0.2-1.3) 02/17/19 06:00 AST 207 U/L (14-36) H D 02/17/19 06:00 ALT 142 U/L (7-56) H 02/17/19 06:00 Alkaline Phosphatase 95 U/L (38-126) 02/17/19 06:00 Lactate Dehydrogenase 437 U/L (333-699) 02/15/19 09:30 Total Creatine Kinase 53 U/L (35-230) 02/15/19 09:30 Troponin I 9.87 ng/mL H* D 02/17/19 06:00 NT-Pro-B Natriuret Pep 88.3 pg/mL (0-450) 02/15/19 09:30 Total Protein 5.8 g/dL (5.8-8.3) 02/17/19 06:00 Albumin 3.2 g/dL (3.0-4.8) 02/17/19 06:00 Globulin 2.6 gm/dL 02/17/19 06:00 Albumin/Globulin Ratio 1.2 (1.1-1.8) 02/17/19 06:00 Triglycerides 86 mg/dL (35-160) 02/15/19 09:30 Cholesterol 256 mg/dL (130-200) H 02/15/19 09:30 LDL Cholesterol Direct 175 mg/dL (0-129) H 02/15/19 09:30 HDL Cholesterol 41 mg/dL (29-60) 02/15/19 09:30 Blood Type A NEGATIVE 02/15/19 11:00 Blood Type Confirm A NEGATIVE 02/15/19 11:45 Antibody Screen Negative 02/15/19 11:00 BBK History Checked No verified bt 02/15/19 11:00 - Hospital Course Hospital Course: Emiliano Wasserman DO, PGY-1 Hospitalist Discharge Summary for Dr. Rousseau Prior to admission: Patient is a 63 year old female with PMH of HTN and tobacco abuse that presented to the emergency room with chest pain. Her son stated that she called him with a concern for new onset, worsening CP, prompting him to call EMS. She was given ASA in the field and presented to ED shortly after. Code heart was subsequently called and patient was taken to laboratory tester urgently. She was admitted to MICU afterward. Hospitalization course: Patient is now s/p PTCA with CITLALLI placement in RCA. After PTCA, her CP resolved. She was started on daily ASA, brilinta BID, lisinopril, toprol XL per cardiology recs. She continued to be stable and was transferred from MICU to telemetry floor. She had TTE completed this AM with LVEF of 55%, mildly reduced LV systolic function. On examination this AM, patient no longer complains of CP. She was instructed to f/u with her PMD in [place] and a soundscriber mechanic, Dr. Hill's information was given. Patient was instructed on the importance of compliance with DAPT given her recent CITLALLI placement. Patient stated she had [place] medicaid and this information was given to pharmacist prior to sending prescriptions. Prescriptions were delivered at bedside prior to patient leaving. Discharge plan was discussed with patient and patient's son. All questions were answered. Patient seen, examined with, and discharge plan discussed with my attending Dr. Soham Wasserman, Artur. IM Resident PGY-1 Discharge Exam - Head Exam Head Exam: ATRAUMATIC, NORMOCEPHALIC - Eye Exam Eye Exam: EOMI, PERRL - ENT Exam ENT Exam: Mucous Membranes Moist - Neck Exam Neck exam: Full Rom, Normal Inspection - Respiratory Exam Respiratory Exam: Clear to PA & Lateral, NORMAL BREATHING PATTERN, UNREMARKABLE. absent: Accessory Muscle Use, Rales, Rhonchi, Wheezes, Respiratory Distress - Cardiovascular Exam Cardiovascular Exam: REGULAR RHYTHM, RRR, +S1, +S2. absent: Diastolic murmur, Gallop, Rubs, Systolic Murmur - GI/Abdominal Exam GI & Abdominal Exam: Normal Bowel Sounds, Soft, Unremarkable. absent: Tender ness - Extremities Exam Extremities exam: full ROM, normal inspection - Back Exam Back exam: NORMAL INSPECTION - Neurological Exam Neurological exam: Alert, Oriented x3 - Psychiatric Exam Psychiatric exam: Normal Affect, Normal Mood - Skin Skin Exam: Dry, Intact, Warm Discharge Plan - Discharge Medications Prescriptions: Aspirin [Adult Aspirin Regimen] 81 mg PO DAILY #30 tablet. Atorvastatin [Lipitor] 40 mg PO DAILY #30 tab Lisinopril [Zestril] 5 mg PO DAILY #30 tab Metoprolol Succinate XL [Toprol XL] 25 mg PO BRK #30 tab Ticagrelor [Brilinta] 90 mg PO BID #60 tab - Follow Up Plan Condition: GOOD Disposition: HOME/ ROUTINE Instructions: Heart Healthy Diet, Heart Disease in Women ([place]), Medicines After a Heart Attack, What Can Go Wrong After a Heart Attack?, Going Home on Blood Thinners , Myocardial Infarction ([place]), Myocardial Infarction (GEN) Additional Instructions: Please follow up with your primary medical doctor in [place] at your scheduled appointment a week from Sunday. Please inform your primary medical doctor that you had a heart attack and bring your new medicines with you to your appointment. Please follow up with a soundscriber mechanic, either Dr. Hill or one in [place] of your choice, within 1 week of your appointment with primary doctor. Please stop taking amlodipine (norvasc). Instead please take the following medications: Aspirin 81 mg daily. Brilinta 90 mg twice a day. Toprol XL 25 mg daily. Lipitor 40 mg daily. Please do not take this for one week, and then restart this medicine on 02/24/19. We have given you a 30 day supply of these medicines. Please see your primary medical doctor for refills of these medicines. As we discussed, it is very important to take all of these medications everyday to prevent your stents from re-clotting. If you experience new or worsening chest pain, shortness of breath, or other concerning symptoms, please return to nearest emergency department. Referrals: Manolo Hill MD [Staff Provider] - <Bridger Rousseau - Last Filed: 02/17/19 16:55> Provider - Provider Date of Admission: 02/16/19 17:29 Attending physician: Halina Leon DO Consults: 02/15/19 10:49 Physician Consult Routine Comment: Consulting Provider: Manolo Hill Consulting Physician: Manolo Hill Reason for Consult: post-STEMI with PTCA and stent 02/15/19 15:01 Inpatient WAISTLINE JOINER OVERLOCK Core Measures Referral Routine Comment: Physician Instructions: Reason For Exam: EVALUATION Nursing Referral for Wound Care Routine Comment: INTACT SKIN POST CATH RIGHT GROIN Physician Instructions: Reason For Exam: EVALUATION Respiratory Therapy Referral Routine Comment: SMOKING CESSATION Physician Instructions: Reason For Exam: EVALUATION Transition In Care/Readmission Reduction Routine Comment: Physician Instructions: Reason For Exam: EVALUATION Hospital Course - Lab Results Lab Results: Micro Results 02/15/19 11:55 Nose MRSA Culture (Admit) - Final MRSA NOT DETECTED Most Recent Lab Values WBC 7.5 10^3/uL (4.5-11.0) D 02/17/19 06:00 RBC 4.05 10^6/uL (3.5-6.1) 02/17/19 06:00 Hgb 11.2 g/dL (12.0-16.0) L 02/17/19 06:00 Hct 35.8 % (36.0-48.0) L 02/17/19 06:00 MCV 88.4 fl (80.0-105.0) 02/17/19 06:00 MCH 27.7 pg (25.0-35.0) 02/17/19 06:00 MCHC 31.3 g/dl (31.0-37.0) 02/17/19 06:00 RDW 14.8 % (11.5-14.5) H 02/17/19 06:00 Plt Count 274 10^3/uL (120.0-450.0) 02/17/19 06:00 MPV 9.4 fl (7.0-11.0) 02/17/19 06:00 Neut % (Auto) 64.7 % (50.0-68.0) 02/17/19 06:00 Lymph % (Auto) 20.7 % (22.0-35.0) L 02/17/19 06:00 [place] % (Auto) 12.7 % (1.0-6.0) H 02/17/19 06:00 Eos % (Auto) 1.5 % (1.5-5.0) 02/17/19 06:00 Baso % (Auto) 0.4 % (0.0-3.0) 02/17/19 06:00 Lymph # (Auto) 1.6 (1.2-3.4) 02/17/19 06:00 [place] # (Auto) 1.0 (0.1-0.6) H 02/17/19 06:00 Eos # (Auto) 0.1 (0.0-0.7) 02/17/19 06:00 Baso # (Auto) 0.03 K/mm3 (0.0-2.0) 02/17/19 06:00 Absolute Neuts (auto) 4.88 (1.4-6.5) 02/17/19 06:00 PT 10.6 SECONDS (9.4-12.5) 02/15/19 09:30 INR 0.94 02/15/19 09:30 APTT 26.7 Seconds (26.9-38.3) L 02/15/19 09:30 Sodium 141 mmol/L (132-148) 02/17/19 06:00 Potassium 3.8 mmol/L (3.6-5.0) 02/17/19 06:00 Chloride 109 mmol/L (98-107) H 02/17/19 06:00 Carbon Dioxide 28 mmol/L (21-33) 02/17/19 06:00 Anion Gap 8 (10-20) L 02/17/19 06:00 BUN 14 mg/dL (7-21) 02/17/19 06:00 Creatinine 0.6 mg/dl (0.7-1.2) L 02/17/19 06:00 Est GFR ( Amer) > 60 02/17/19 06:00 Est GFR (Non-Af Amer) > 60 02/17/19 06:00 Random Glucose 93 mg/dL (70-110) 02/17/19 06:00 Hemoglobin A1c 5.8 % (4.2-6.5) 02/15/19 09:30 Calcium 8.6 mg/dL (8.4-10.5) 02/17/19 06:00 Phosphorus 2.9 mg/dL (2.5-4.5) 02/16/19 05:00 Magnesium 1.8 mg/dL (1.7-2.2) 02/16/19 05:00 Total Bilirubin 0.5 mg/dL (0.2-1.3) 02/17/19 06:00 AST 207 U/L (14-36) H D 02/17/19 06:00 ALT 142 U/L (7-56) H 02/17/19 06:00 Alkaline Phosphatase 95 U/L (38-126) 02/17/19 06:00 Lactate Dehydrogenase 437 U/L (333-699) 02/15/19 09:30 Total Creatine Kinase 53 U/L (35-230) 02/15/19 09:30 Troponin I 9.87 ng/mL H* D 02/17/19 06:00 NT-Pro-B Natriuret Pep 88.3 pg/mL (0-450) 02/15/19 09:30 Total Protein 5.8 g/dL (5.8-8.3) 02/17/19 06:00 Albumin 3.2 g/dL (3.0-4.8) 02/17/19 06:00 Globulin 2.6 gm/dL 02/17/19 06:00 Albumin/Globulin Ratio 1.2 (1.1-1.8) 02/17/19 06:00 Triglycerides 86 mg/dL (35-160) 02/15/19 09:30 Cholesterol 256 mg/dL (130-200) H 02/15/19 09:30 LDL Cholesterol Direct 175 mg/dL (0-129) H 02/15/19 09:30 HDL Cholesterol 41 mg/dL (29-60) 02/15/19 09:30 Blood Type A NEGATIVE 02/15/19 11:00 Blood Type Confirm A NEGATIVE 02/15/19 11:45 Antibody Screen Negative 02/15/19 11:00 BBK History Checked No verified bt 02/15/19 11:00 Attending/Attestation - Attestation I have personally seen and examined this patient.: Yes I have fully participated in the care of the patient.: Yes I have reviewed all pertinent clinical information, including history, physical exam and plan: Yes Notes (Text): 02/17/19 16:41 Attending note; Patient seen and examined with resident. Patient,s son by the bedside. Patient denies any chest pain or shortness of breath. tolerating diet. Groin site is soft. non tender. Patient is a 63-year-old female past medical history significant for hypertension and smoking that presented to the emergency room with chest pain. 1. Acute STEMI. Patient s/p PTCA 01/16/19. Drug eluting stent placed in RCA. Cardiology recommendations appreciated. S/P integrillin drip. Continue brillinta and ASA. Continue lisinopril and Toprol. 2. Hypertension. Patient will need to stop home Norvasc. Continue lisinopril and Toprol XL. 3. Hyperlipidemia. lipitor on hold due to elevated lft. advised to restart lipitor after checking LFT in 1 week. 4. Tobacco abuse. Counseled at length on cessation. Case was discussed in detail with the patient and patient's son at bedside regarding current diagnosis, study results, and treatment plan. All questions answered. discharge home today. patient has an appointment with PMD in [place] in 9 days. The diagnosis and treatment plan discussed with patient and patient's son in detail.
--- NOTE | 2019-02-20 07:03 | CARD ---
APPROVED REPORT Date of service: 02/15/2019 Procedure(s) performed: Left Heart Catheterization Complete Heart Catheterization Left Ventriculogram PTCA with Stenting HISTORY The patient is a 63 year-old female with a history of : hypertension , dyslipidemia . INDICATION The indication(s) include : STEMI (>0 to less than or equal to 6 hours). CASE TECHNIQUE The patient was brought emergently to the Cardiac Catheterization Laboratory in a fasting state and was prepped and draped in a sterile manner. The right femoral groin was infiltrated with 2% Lidocaine subcutaneous anesthesia. A 6 Fr x 11 cm Mechelle sheath was inserted using coronary diagnostic catheters. The left coronary system was accessed and visualized with a Diagnostic catheter. The right coronary system was accessed and visualized with a Diagnostic catheter. The left ventricle was accessed and visualized with a Diagnostic catheter. Left ventricular/Aortic Valve gradient assessed on pullback. Left ventriculogram was performed in HER[place]NDEZ projection. An aortogram of the ascending aorta was performed. Closure device was deployed with a 6 Fr Angio-Seal without any complications. The patient tolerated the procedure well and there were no complications associated with the procedure. Vessel Analysis The patient's coronary anatomy is right dominant. The left main coronary artery is a medium size vessel . There is a 40% stenosis in the distal segment. The left main bifurcates to the left anterior descending and circumflex. The left anterior descending artery is a large size vessel . There is a 50% stenosis in the mid segment. The circumflex artery is a medium size vessel . There is a 30% stenosis in the mid segment. The right coronary artery is a large size vessel . There is a 100% stenosis in the mid segment. Left Ventricle The left ventricle is normal in size with inferioir wall hypo contractility. The left ventricular ejection fraction is estimated to be 40%. There was no gradient across the aortic valve upon pullback. PCI Technique Lesion Anticoagulation was achieved with Heparin. Percutaneous coronary intervention was performed on the mid right coronary artery. The lesion stenosis prior to intervention was 100% with MONICA 0 flow. A 6 Fr JR 4 Guide Catheter was used to engage the RCA ostium. A 0.014 x 180 cm Runthrough NS Interventional Guidewire was used to cross the lesion. BALLOON DILATION A Balloon catheter 2.5 x 15 mm Sprinter RX was inserted and inflated up to 8.00atm for 7seconds. STENT DEPLOYMENT A drug-eluting stent STENT RESOLUTE DANTE 3.0 X 38 was inserted and inflated up to 18.00atm for 18seconds. Repeat angiography revealed the following post-stent deployment results: Good appostion of stent. Final angiography reveals 0 % stenosis with MONICA 3 flow. Conclusion Acute MD of the RCA. Moderate LM CAD. Mild depressed left ventricular function. Successful PCI/Stent of the RCA with CITLALLI. Recommendations Cardiac Rehabilitation Referral Aggressive Medical TherapyCardiac Risk Reduction Program Medical Therapy
== END 2019-02-17 16:20 | disposition home or self-care (01) | DRG 247 ==
LOC: ED 09:17 → CATH 09:35 → 2RSO 10:00 → ED 10:09 → ICU 11:05 → 2RSO 02-16 10:02 → ICU 02-16 10:02 → UNDOADMIN 02-16 17:29 → UNDOADMOB 02-16 17:29 → 2RSO 02-16 17:29 → CATH 02-16 17:29 → INTOOBSV 02-16 17:29 → 2RSO 02-16 17:29 → UNDODISIN 02-17 16:20
PROVIDERS: ADMIT Hospitalist; ATTEND Hospitalist
PROC: 027034Z Dilation of Coronary Artery, One Artery with Drug-eluting Intraluminal Device, Percutaneous Approach (ICD-10-PCS; principal; 2019-02-15)
PROC: 4A023N7 Measurement of Cardiac Sampling and Pressure, Left Heart, Percutaneous Approach (ICD-10-PCS; 2019-02-15)
PROC: B2151ZZ Fluoroscopy of Left Heart using Low Osmolar Contrast (ICD-10-PCS; 2019-02-15)
DX: I21.11 ST elevation (STEMI) myocardial infarction involving right coronary artery (principal); I25.10 Atherosclerotic heart disease of native coronary artery without angina pectoris; E78.5 Hyperlipidemia, unspecified; I10 Essential (primary) hypertension; R74.0 Nonspecific elevation of levels of transaminase and lactic acid dehydrogenase [LDH]; T46.6X5A Adverse effect of antihyperlipidemic and antiarteriosclerotic drugs, initial encounter; F17.200 Nicotine dependence, unspecified, uncomplicated